=== PATIENT | female | born 1950 | race Asian ===

== ENCOUNTER 2021-01-19 09:09 | Emergency (ER) | payer OTHER, MEDICAID ==
[~2021-01-19] VITALS: Ht 152.4 cm; Wt 54.4 kg
[2021-01-19 09:15] VITALS: BP_SYST 135
[2021-01-19] MEDS ORDERED: KETOROLAC TROMETHAMINE 30 MG VIAL IVP ONE (10:00)
[2021-01-19] MEDS ORDERED: NACL 0.9% 1,000 ML IV ONE (10:00)
[2021-01-19 10:18] LABS: BASOPHILS % (AUTO) 0.4 % (0.0-2.0); HEMATOCRIT 40.3 % (36-48); HEMOGLOBIN 13.8 g/dL (12.0-16.0); LYMPHOCYTES # (AUTO) 0.5 K/uL (1.0-5.5); LYMPHOCYTES % (AUTO) 6.6 % (20.5-51.5); MEAN CORPUSCULAR HEMOGLOBIN 32 pg (27-31); MEAN CORPUSCULAR HGB CONC 34 % (32-36); MEAN CORPUSCULAR VOLUME 95 fL (79.0-98.0); MONOCYTES # (AUTO) 0.1 K/uL (0.0-1.0); MONOCYTES % (AUTO) 1.6 % (1.7-9.3); NEUTROPHILS # (AUTO) 7.2 K/uL (1.8-7.7); NEUTROPHILS % (AUTO) 91.4 % (40.0-70.0); PLATELET COUNT (AUTO) 196 K/uL (130-430); RED BLOOD CELL COUNT(AUTO) 4.26 MIL/uL (4.2-6.2); RED CELL DISTRIBUTION WIDTH 12.3 % (9.0-15.0); WHITE BLOOD COUNT (AUTO) 7.9 K/uL (4.8-10.8)
[2021-01-19 10:33] LABS: CALCIUM 10.4 mg/dL (8.4-11.0); CREATININE 0.69 mg/dL (0.55-1.30); POTASSIUM 4.2 mmol/L (3.5-5.1)
[2021-01-19 10:34] LABS: ALBUMIN 4.1 g/dL (3.4-4.8); TOTAL BILIRUBIN 0.9 mg/dL (0.0-1.0)
[2021-01-19 11:36] LABS: BILIRUBIN,URINE NEGATIVE (NEGATIVE); BLOOD, URINE NEGATIVE (NEGATIVE); CLARITY/URINE CLOUDY (CLEAR); COLOR,URINE YELLOW (YELLOW); GLUCOSE,URINE NEGATIVE (NEGATIVE); KETONES,URINE TRACE (NEGATIVE); LEUKOCYTE ESTERASE ,URINE NEGATIVE (NEGATIVE); NITRITE, URINE NEGATIVE (NEGATIVE); PROTEIN URINE NEGATIVE (NEGATIVE); UROBILINOGEN,URINE 0.2 (0.2-1.0)
[2021-01-19] MEDS ORDERED: TRAM50TA PO (11:50)
[2021-01-19 11:51] LABS: BACTERIA,URINE None Seen /HPF (None Seen); RBC,URINE NONE SEEN /HPF (0-3); URINE AMORPHOUS PHOSPHATES 4+ /HPF (None Seen); WBC,URINE NONE SEEN /HPF (0-3)
[2021-01-19] MEDS ORDERED: ONDA-8 TL (11:52)
[2021-01-19 12:04] VITALS: BP_SYST 135
== END 2021-01-19 12:08 | disposition home or self-care (01) ==
LOC: SED 09:09
DX: K80.50 Calculus of bile duct without cholangitis or cholecystitis without obstruction (principal)
CPT/HCPCS: 36415; 71045; 76700; 80053; 80061; 81000; 83690; 83880; 84484; 85025; 93005; 96361; 96374; 99285; J1885; J7030

== ENCOUNTER 2021-01-22 08:28 | Emergency (ER) | payer OTHER, MEDICAID ==
[~2021-01-22] VITALS: Ht 160 cm; Wt 55.3 kg
[~2021-01-22 08:28] MED LIST: ONDA-8 TL; TRAM50TA PO
[2021-01-22 08:52] VITALS: BP_SYST 115
--- NOTE | 2021-01-22 08:55 | NUR ---
Placed in room 8 . Placed on monitoring analyst, blood pressure machine and pulse oximeter. To gown for exam. Side rails up. Report given to BEHZAD Barajas.
--- NOTE | 2021-01-22 09:20 | NUR ---
Pt came into ER with complaint of right lower quadrant abdominal pain 3/10 intermittent cramping with N/V Xtoday. Pt reports she was getting ready for spiritism this morning and began vomitting. Pt is AAOX4 speaking full sentences. Breathing is even and unlabored. Pt VSS resting ing urney attached to monitor no distress noted at this time.
--- NOTE | 2021-01-22 09:22 | NUR ---
Pt ambulated to restroom for urine specimen.
--- NOTE | 2021-01-22 09:30 | NUR ---
Urine collected and sent to lab.
--- NOTE | 2021-01-22 09:35 | NUR ---
# 20 gauge angiocath placed to LAC. Use of asceptic technique. Opsite placed over site. Blood return noted. Blood for lab drawn from site. Flushed with 10 cc of normal saline. No evidence of infiltration noted. Patient tolerated well.
--- NOTE | 2021-01-22 09:40 | NUR ---
Blood collected and sent to lab.
[2021-01-22] MEDS ORDERED: ONDANSETRON HCL 4 MG/2 ML VIAL IVP ONE (10:00)
--- NOTE | 2021-01-22 10:13 | NUR ---
ER at bedside examining patient.
[2021-01-22 10:30] LABS: BILIRUBIN,URINE NEGATIVE (NEGATIVE); BLOOD, URINE NEGATIVE (NEGATIVE); CLARITY/URINE CLEAR (CLEAR); COLOR,URINE YELLOW (YELLOW); GLUCOSE,URINE NEGATIVE (NEGATIVE); KETONES,URINE NEGATIVE (NEGATIVE); LEUKOCYTE ESTERASE ,URINE NEGATIVE (NEGATIVE); NITRITE, URINE NEGATIVE (NEGATIVE); PH,URINE 5.5 (5.0-8.0); PROTEIN URINE NEGATIVE (NEGATIVE); UROBILINOGEN,URINE 0.2 (0.2-1.0)
[2021-01-22] MEDS ORDERED: NACL 0.9% 1,000 ML IV ONE (10:30)
[2021-01-22] MEDS ORDERED: KETOROLAC TROMETHAMINE 30 MG VIAL IVP ONE (10:30)
[2021-01-22 10:36] LABS: BASOPHILS # (AUTO) 0.1 K/uL (0.0-0.2); EOSINOPHILS # (AUTO) 0.1 K/uL (0.0-0.4); EOSINOPHILS % (AUTO) 1.9 % (0.0-4.0); HEMATOCRIT 38.6 % (36-48); HEMOGLOBIN 13.1 g/dL (12.0-16.0); LYMPHOCYTES # (AUTO) 0.9 K/uL (1.0-5.5); LYMPHOCYTES % (AUTO) 12.4 % (20.5-51.5); MEAN CORPUSCULAR HEMOGLOBIN 32 pg (27-31); MEAN CORPUSCULAR HGB CONC 34 % (32-36); MEAN CORPUSCULAR VOLUME 95 fL (79.0-98.0); MONOCYTES # (AUTO) 0.4 K/uL (0.0-1.0); MONOCYTES % (AUTO) 5.5 % (1.7-9.3); NEUTROPHILS # (AUTO) 5.7 K/uL (1.8-7.7); NEUTROPHILS % (AUTO) 79.2 % (40.0-70.0); PLATELET COUNT (AUTO) 222 K/uL (130-430); RED BLOOD CELL COUNT(AUTO) 4.04 MIL/uL (4.2-6.2); RED CELL DISTRIBUTION WIDTH 12.4 % (9.0-15.0); WHITE BLOOD COUNT (AUTO) 7.2 K/uL (4.8-10.8)
[2021-01-22 10:38] LABS: ANION GAP 4 (5-15); CHLORIDE 99 mmol/L (98-107); CREATININE 0.64 mg/dL (0.55-1.30); GLUCOSE 145 mg/dL (70-99); POTASSIUM 4.2 mmol/L (3.5-5.1); SODIUM SERUM 133 mmol/L (136-145); UREA NITROGEN, BLOOD 11 mg/dL (8-21)
[2021-01-22 10:42] LABS: ALANINE AMINOTRANSFERASE 26 U/L (12-78); ALBUMIN 3.5 g/dL (3.4-4.8); ASPARTATE AMINOTRANSFERASE 18 U/L (10-37); LIPASE 189 U/L (73-393); TOTAL BILIRUBIN 1.2 mg/dL (0.0-1.0)
--- NOTE | 2021-01-22 10:56 | NUR ---
Pt resting in gurney attached to monitor VSS no distress noted at this time. Pt reports pain and nausea is relieved. Breathing is even and unlabored.
--- NOTE | 2021-01-22 12:08 | NUR ---
Pt asleep in [facility] VSS no distress noted at this time. Breathing is even and unlabored.
--- NOTE | 2021-01-22 12:40 | NUR ---
Dr. Chau at bedside speaking with pt.
[2021-01-22 13:18] VITALS: BP_SYST 106
== END 2021-01-22 13:18 | disposition home or self-care (01) ==
LOC: SED 08:28
DX: K80.20 Calculus of gallbladder without cholecystitis without obstruction (principal); R11.2 Nausea with vomiting, unspecified
CPT/HCPCS: 36415; 80053; 81003; 83690; 85025; 96361; 96374; 96375; 99285; J1885; J2405; J7030

== ENCOUNTER 2021-07-03 04:05 | Emergency (ER) | payer OTHER, MEDICAID ==
[~2021-07-03] VITALS: Ht 160 cm; Wt 55.3 kg
[2021-07-03 04:15] VITALS: BP_SYST 111
--- NOTE | 2021-07-03 04:30 | NUR ---
GULSHAN Mosquera at bedside examining patient.
[2021-07-03] MEDS ORDERED: ONDANSETRON HCL 4 MG/2 ML VIAL IVP ONE ×2 (04:45→07:45)
[2021-07-03] MEDS ORDERED: MORPHINE 2 MG/ML INJ. SYRINGE IVP ONE (04:45)
[2021-07-03] MEDS ORDERED: NACL 0.9% 1,000 ML IV ONE (04:45)
--- NOTE | 2021-07-03 05:05 | NUR ---
Pt C/O diffuse abdominal pain Hx of gallstones VSS Verbally responsive Able to make needs known IV inserted Pt medicated Will continue to monitor
[2021-07-03 05:20] LABS: BASOPHILS % (AUTO) 0.8 % (0.0-2.0); EOSINOPHILS % (AUTO) 0.6 % (0.0-4.0); HEMATOCRIT 37.3 % (36-48); HEMOGLOBIN 12.6 g/dL (12.0-16.0); LYMPHOCYTES # (AUTO) 0.7 K/uL (1.0-5.5); LYMPHOCYTES % (AUTO) 11.5 % (20.5-51.5); MEAN CORPUSCULAR HEMOGLOBIN 32 pg (27-31); MEAN CORPUSCULAR HGB CONC 34 % (32-36); MEAN CORPUSCULAR VOLUME 96 fL (79.0-98.0); MONOCYTES # (AUTO) 0.2 K/uL (0.0-1.0); MONOCYTES % (AUTO) 2.8 % (1.7-9.3); NEUTROPHILS # (AUTO) 4.9 K/uL (1.8-7.7); NEUTROPHILS % (AUTO) 84.3 % (40.0-70.0); PLATELET COUNT (AUTO) 154 K/uL (130-430); RED CELL DISTRIBUTION WIDTH 12.3 % (9.0-15.0); WHITE BLOOD COUNT (AUTO) 5.8 K/uL (4.8-10.8)
[2021-07-03 05:43] LABS: ANION GAP 9 (5-15); CALCIUM 10.4 mg/dL (8.4-11.0); CHLORIDE 104 mmol/L (98-107); CREATININE 0.75 mg/dL (0.55-1.30); GLUCOSE 178 mg/dL (70-99); POTASSIUM 3.1 mmol/L (3.5-5.1); SODIUM SERUM 140 mmol/L (136-145); UREA NITROGEN, BLOOD 15 mg/dL (8-21)
[2021-07-03] MEDS ORDERED: fentaNYL CITRATE/PF 100 MCG/2 ML AMP IVP ONE (05:45)
--- NOTE | 2021-07-03 05:45 | NUR ---
Pt C/O epigastric pain at this time Per Dr. Callejas, admnister 50mcg Fentanyl Order notd and carried out
[2021-07-03] MEDS ORDERED: fentaNYL CITRATE/PF 100 MCG/2 ML AMP ONE (05:47)
[2021-07-03 05:57] LABS: ALANINE AMINOTRANSFERASE 23 U/L (12-78); ALBUMIN 3.7 g/dL (3.4-4.8); ASPARTATE AMINOTRANSFERASE 21 U/L (10-37); LIPASE 256 U/L (73-393); TOTAL BILIRUBIN 0.7 mg/dL (0.0-1.0)
--- NOTE | 2021-07-03 06:35 | NUR ---
pt resting comfortably in bed at this time VSS Verbally responsive Able to make needs known Will continue to monitor
[2021-07-03 07:00] LABS: BILIRUBIN,URINE NEGATIVE (NEGATIVE); BLOOD, URINE NEGATIVE (NEGATIVE); COLOR,URINE YELLOW (YELLOW); GLUCOSE,URINE TRACE (NEGATIVE); KETONES,URINE NEGATIVE (NEGATIVE); LEUKOCYTE ESTERASE ,URINE NEGATIVE (NEGATIVE); NITRITE, URINE NEGATIVE (NEGATIVE); PROTEIN URINE NEGATIVE (NEGATIVE); UROBILINOGEN,URINE 0.2 (0.2-1.0)
--- NOTE | 2021-07-03 07:13 | NUR ---
Gave report to Valdo
--- NOTE | 2021-07-03 07:15 | NUR ---
Report received from [facility] WEN to assume care of patient
[2021-07-03] MEDS ORDERED: NAPR-688 PO (07:22)
[2021-07-03] MEDS ORDERED: TRAM50TA PO (07:22)
[2021-07-03] MEDS ORDERED: KETOROLAC TROMETHAMINE 30 MG VIAL IVP ONE (07:45)
[2021-07-03 08:49] LABS: CLARITY/URINE CLEAR (CLEAR)
[2021-07-03 09:00] VITALS: BP_SYST 125
--- NOTE | 2021-07-03 09:09 | NUR ---
Patient given written and verbal discharge instructions and verbalizes understanding. ER MD discussed with patient the results and treatment provided. Patient in stable condition. ID arm band removed. IV catheter removed intact and dressing applied, no active bleeding. Rx of Naproxen and Tramadol given. Patient educated on pain management and to follow up with PMD. Pain scale 8/10. Opportunity for questions provided and answered. Medication side effect fact sheet provided.
== END 2021-07-03 09:00 | disposition home or self-care (01) ==
LOC: SED 04:05
DX: K80.66 Calculus of gallbladder and bile duct with acute and chronic cholecystitis without obstruction (principal)
CPT/HCPCS: 36415; 74176; 76376; 80053; 81003; 83605; 83690; 84484; 85025; 96361; 96374; 96375; 96376; 99284; J1885; J2270; J2405; J3010; J7030